=== PATIENT | female | born 1985 | race African-American/Black ===

== ENCOUNTER 2017-12-07 10:13 | Emergency (ER) | payer MEDICARE ==
[~2017-12-07 10:13] MED LIST: IBUP800T23 PO; VISI0.053 OP
[2017-12-07 10:25] VITALS: BP 129/64; PULSE 70; RESP 16; TEMP 98.2; O2SAT 99
--- NOTE | 2017-12-07 10:41 | PD ---
HPI Chief Complaint: Injury Time Seen by Provider: 10:28 Travel History International Travel<30 days: No Contact w/Intl Traveler<30days: No Traveled to known affect area: No History of Present Illness HPI 32-year-old female with known history of flatfeet, presents emergency department with pain in the right foot and ankle since playing basketball with her children last evening. Patient denies any specific injury other than coming down "really hard" on the right foot and ankle. Her pain is described as an achy stiffness worse with ambulation and movement. It is rated as an 8 out of 10. She denies numbness or tingling. Patient is allergic to adhesives. PFSH Past Medical History Glaucoma: Yes Immunizations Current: Yes Past Surgical History Eye Surgery: Yes (LEFT EYE TRANSPLANT) Social History Alcohol Use: Yes (OCC) Tobacco Use: Yes (4 A DAY) Substance Use: No Allergies-Medications (Allergen,Severity, Reaction): Coded Allergies: adhesive (Unverified Allergy, Severe, Rash, 12/07/17) Reported Meds & Prescriptions Reported Meds & Active Scripts Active Review of Systems Except as stated in HPI: all other systems reviewed are Neg General / Constitutional: No: Fever Eyes: No: Visual changes HENT: No: Headaches Cardiovascular: No: Chest Pain or Discomfort Respiratory: No: Shortness of Breath Gastrointestinal: No: Abdominal Pain Genitourinary: No: Dysuria Musculoskeletal: Positive: Arthralgias, Limited ROM, Pain Skin: No Rash Neurologic: No: Weakness Psychiatric: No: Depression Endocrine: No: Polydipsia Hematologic/Lymphatic: No: Easy Bruising Physical Exam Narrative GENERAL: Patient appears in mild to moderate distress. SKIN: Warm and dry. Normal color. Normal turgor. No signs of trauma. HEAD: Atraumatic. Normocephalic. EYES: Pupils equal and round. No scleral icterus. No injection or drainage. ENT: No nasal bleeding or discharge. Mucous membranes pink and moist. Pharynx is clear. Airways patent. NECK: Trachea midline. Supple. CARDIOVASCULAR: Regular rate and rhythm. RESPIRATORY: No accessory muscle use. Clear to auscultation. Breath sounds equal bilaterally. GASTROINTESTINAL: Abdomen soft, non-tender, nondistended. Hepatic and splenic margins not palpable. MUSCULOSKELETAL: Extremities without clubbing, cyanosis, or edema. No obvious deformities. Patient does not have significant swelling in the right foot or ankle. She does have pain along the anterior aspect of the right ankle and proximal dorsal foot. Patient is noted to have significant pes planus. NEUROLOGICAL: Awake and alert. No obvious cranial nerve deficits. Motor grossly within normal limits. Five out of 5 muscle strength in the arms and legs. Normal speech. PSYCHIATRIC: Appropriate mood and affect; insight and judgment normal. Data Data Last Documented VS Vital Signs Date Time Temp Pulse Resp B/P (MAP) Pulse Ox O2 Delivery O2 Flow Rate FiO2 12/07/17 10:25 98.2 70 16 129/64 (85) 99 Orders Orders Ankle, Complete ([id number]) (12/07/17 10:34) Foot, Complete ([id number]) (12/07/17 10:34) Crutches (12/07/17 11:04) Ibuprofen (Motrin) (12/07/17 11:15) MDM Medical Decision Making Medical Screen Exam Complete: Yes Emergency Medical Condition: Yes Differential Diagnosis Right foot sprain. Right ankle sprain. Possible fracture. Pes planus. Narrative Course X-rays of the right foot and ankle are ordered. X-ray showed no acute fracture or dislocation. Patient is given ibuprofen 800 mg p.o. now. Patient will be treated with crutches, and weightbearing as tolerated. Patient given ibuprofen 600 mg 4 times daily #40. Patient is to elevate and ice the area frequently over the next several days. Work note is given. Patient is to follow-up with Dr. Ryder, the buckle gluer if symptoms continue or worsen. Diagnosis Primary Impression: Sprain of right foot Qualified Codes: S93.601A - Unspecified sprain of right foot, initial encounter Additional Impression: Moderate right ankle sprain Qualified Codes: S93.401A - Sprain of unspecified ligament of right ankle, initial encounter Referrals: Greg Ryder DPKial[facility] call for appointment Patient Instructions: Ankle Exercises (GEN), Crutch Instructions (ED), Flatfoot (GEN), General Instructions Departure Forms: Work Release Enter return to work date: Dec 10, 2017 Additional Instructions: X-ray showed no acute fracture or dislocation. Patient is given ibuprofen 800 mg p.o. now. Patient will be treated with crutches, and weightbearing as tolerated. Patient given ibuprofen 600 mg 4 times daily #40. Patient is to elevate and ice the area frequently over the next several days. Work note is given. Patient is to follow-up with Dr. Ryder, the buckle gluer if symptoms continue or worsen. Med/Other Pt SpecificInfo: Prescription(s) given Disposition: 01 DISCHARGE HOME Condition: Stable Skyler Mckeon Dec 07, 2017 10:41
[2017-12-07] MEDS ORDERED: IBUP-232 PO (11:08)
[2017-12-07] MEDS ORDERED: IBUPROFEN 800 MG TAB PO ONE (11:15)
--- NOTE | 2017-12-07 11:19 | RADRPT ---
EXAM DATE: 12/07/2017 10:55 AM EDT AGE/SEX: 32 years / Female INDICATIONS: Hurt right ankle playing basketball. CLINICAL DATA: This is the patient's initial encounter. Patient reports that signs and symptoms have been present for 2 days and indicates a pain score of 9/10. MEDICAL/SURGICAL HISTORY: . flat footed None. COMPARISON: No prior [facility] exams available for comparison. FINDINGS: Bony structures are intact and in normal alignment. Joints are intact without dislocation or signifi cant arthropathy. Osseous density is normal. Soft tissues are unremarkable. No radiopaque foreign bodies seen. CONCLUSION: Negative examination Electronically signed by: Get Massey MD 12/07/2017 11:18 AM EDT
--- NOTE | 2017-12-07 11:20 | RADRPT ---
EXAM DATE: 12/07/2017 11:00 AM EDT AGE/SEX: 32 years / Female INDICATIONS: Right foot pain, hurt playing basketball. CLINICAL DATA: This is the patient's initial encounter. Patient reports that signs and symptoms have been present for 2 days and indicates a pain score of 9/10. MEDICAL/SURGICAL HISTORY: . flat footed None. COMPARISON: No prior [facility] exams available for comparison. FINDINGS: Bony structures are intact and in normal alignment. Osseous density is normal. Soft tissues are unre markable. No radiopaque foreign bodies seen. Multiple DIP joints are fused from the third to the fif th toe CONCLUSION: No acute fracture, lytic or blastic lesion Electronically signed by: Get Massey MD 12/07/2017 11:19 AM EDT
== END 2017-12-07 11:27 | disposition home or self-care (01) ==
LOC: NEPK 10:13
DX: S93.601A Unspecified sprain of right foot, initial encounter (principal); S93.401A Sprain of unspecified ligament of right ankle, initial encounter; X58.XXXA Exposure to other specified factors, initial encounter; Y93.67 Activity, basketball; H40.9 Unspecified glaucoma; F17.200 Nicotine dependence, unspecified, uncomplicated
CPT/HCPCS: 73610; 73630; 99283; E0113